=== PATIENT | male | born 1980 | race Caucasian/White ===

== ENCOUNTER 2024-02-15 01:33 | Emergency (ER) | payer OTHER ==
[2024-02-15] MEDS ORDERED: XYLOCAINE 1% HCL 20 ML MDV ONE (01:46)
[2024-02-15 01:53] VITALS: RESP 18; TEMP 98.6
--- NOTE | 2024-02-15 02:08 | ERPHSYRPT ---
- History of Present Illness Time Seen by Provider: 02/15/24 01:39 Source: patient Exam Limitations: no limitations Patient Subjective Stated Complaint: laceration on L upper arm Triage Nursing Assessment: pt ambulatory to bed by self with steady gait, pt alert and oriented x3, pt has 3 cm x 1 cm laceration on L upper arm from a steel roldan, tetanus is not utd. bleeding controlled. Physician History: 43-year-old presented to the ER after he had a laceration left upper outer arm prior to arrival at work while handling some steel. There was bleeding initially but stopped with applying pressure. Minimal dull aching pain. No numbness tingling or weakness distally. Allergies/Adverse Reactions: No Known Drug Allergies Allergy (Verified 02/15/24 01:44) Home Medications: No Reportable Medications [No Reported Medications] 02/15/24 [History] Hx Tetanus, Diphtheria Vaccination/Date Given: No Hx Influenza Vaccination/Date Given: No Hx Pneumococcal Vaccination/Date Given: No Travel Risk - International Travel Have you traveled outside of the country in past 3 weeks: No - Emerging Infectious Disease Are you exhibiting symptoms associated with any current EIDs: No - Review of Systems Constitutional: No Symptoms Ears, Nose, & Throat: No Symptoms Respiratory: No Symptoms Cardiac: No Symptoms Musculoskeletal: Injury Skin: No Symptoms, Skin Lesions Neurological: No Symptoms Endocrine: No Symptoms Hematologic/Lymphatic: No Symptoms - Past Medical History Pertinent Past Medical History: Yes Neurological History: No Pertinent History ENT History: No Pertinent History Cardiac History: No Pertinent History Respiratory History: No Pertinent History Endocrine Medical History: No Pertinent History Musculoskeletal History: No Pertinent History GI Medical History: Hernia History: No Pertinent History Psycho-Social History: No Pertinent History Male Reproductive Disorders: No Pertinent History - Past Surgical History Past Surgical History: Yes Neuro Surgical History: No Pertinent History Cardiac: No Pertinent History Respiratory: No Pertinent History Gastrointestinal: No Pertinent History Genitourinary: No Pertinent History Musculoskeletal: No Pertinent History Male Surgical History: No Pertinent History - Social History Smoking Status: Current every day smoker Exposure to second hand smoke: Yes Drug Use: none - Social Determinants of Health Will the patient participate in the screening: Yes Do you worry about a steady place to live?: No Do you have any problems with any of the following?: No known problems In the past 12 months,have you had to go without utilities?: No Transportation Issues: No Has anyone in your support network made you feel unsafe?: No Have you or anyone in your house had to go without enough: No - Nursing Vital Signs Nursing Vital Signs: Initial Vital Signs Temperature 98.6 F 02/15/24 01:45 Pulse Rate 88 02/15/24 01:45 Respiratory Rate 18 02/15/24 01:45 Blood Pressure 124/85 02/15/24 01:45 O2 Sat by Pulse Oximetry 96 02/15/24 01:45 Pain Scale Pain Intensity 0 - Physical Exam General Appearance: no apparent distress, alert Eye Exam: PERRL/EOMI Ears, Nose, Throat Exam: normal ENT inspection Neck Exam: normal inspection, full range of motion Respiratory Exam: normal breath sounds, lungs clear Cardiovascular Exam: regular rate/rhythm, normal heart sounds Extremity Exam: lacerations (3 cm superficial oblique laceration left upper arm. No active spurting, minimal oozing.), tenderness Neurologic Exam: alert, oriented x 3, cooperative Skin Exam: normal color SpO2 Interpretation: normal SpO2: 96 O2 Delivery: Room Air Procedures - Laceration/Wound Repair Left Arm Time of Procedure: 02:06 Wound Location: Left Wound Length (cm): 3 Wound's Depth, Shape: superficial Wound Explored: clean Irrigated: Yes Hibiclens Prep: Yes Anesthesia: 1% Lidocaine Volume Anesthetic (ccs): 5 Wound Repaired With: sutures Suture Size/Type: 4-0 Number of Sutures: 6 Layer Closure?: No Sterile Dressing Applied?: Yes Ordered Tests: Medication Summary Discontinued Medications Generic Name Dose Route Start Last Admin Trade Name Jerichoq PRN Reason Stop Dose Admin Lidocaine HCl Confirm 02/15/24 01:46 Lidocaine Hcl 1% 20 Ml Mdv 20 Ml Ml Administered 02/15/24 01:47 Dose 1 ml .ROUTE .STU-[employer]-MED ONE - Progress Progress: improved Progress Note: 02/15/24 02:06 43-year-old is evaluated for left arm laceration. Thoroughly cleaned, repaired. Tetanus is updated. Discussed signs symptoms of infection needing return to ER which he seems understanding. Stable for discharge. Counseled pt/family regarding: diagnosis, need for follow-up Medical Desision Making - Risk of complications The pt has a mod risk of morbidity or mortality based on: Need for minor surgical intervention in patient with know risk factors - Departure Departure Disposition: Home Clinical Impression: Arm laceration Condition: Stable Critical Care Time: No Referrals: JASON ANN MD [Primary Care Provider] - Follow up with PCP 1 day Instructions: Laceration Repair With Stitches (DC) Additional Instructions: Follow-up with your primary care physician for reevaluation. Take Tylenol/ibuprofen as needed. Avoid exertional activities. Return to ER for increasing pain swelling, discharge, fever chills etc. Suture removal in 10 - 14days
[2024-02-15] MEDS ORDERED: Adacel Vial IM ONE (02:16)
[2024-02-15] MEDS: Adacel Vial IM ONE (02:21)
[2024-02-15] MEDS: XYLOCAINE 1% HCL 20 ML MDV IJ ONE (02:25)
[2024-02-15 02:30] VITALS: BP 112/84; PULSE 90; O2SAT 97
== END 2024-02-15 02:30 | disposition home or self-care (01) ==
LOC: ED 01:33
DX: S41.112A Laceration without foreign body of left upper arm, initial encounter (principal); W26.8XXA Contact with other sharp object(s), not elsewhere classified, initial encounter; Y92.63 Factory as the place of occurrence of the external cause; Y99.0 Civilian activity done for income or pay; Z72.0 Tobacco use; Z23 Encounter for immunization
CPT/HCPCS: 12002; 90471; 90715; 96372; 99283

== ENCOUNTER 2024-08-05 16:07 | Emergency (ER) | payer OTHER ==
[2024-08-05 16:18] VITALS: BP 138/78; PULSE 90; RESP 18; TEMP 97.4; O2SAT 95
--- NOTE | 2024-08-05 16:57 | ERPHSYRPT ---
- History of Present Illness Time Seen by Provider: 08/05/24 16:40 Source: patient Exam Limitations: no limitations Patient Subjective Stated Complaint: Pt states "I was at work last night and I cut my finger on some metal and when I went home to clean it I noticed it was a little deeper than I originally thought." Triage Nursing Assessment: Pt presented alert and oriented X 3, skin pwd. Pt ambulates with an upright steady gait, able to speak in clear full sentences. Pt has approx 3.5 cm with deeper laceration the last 1.5 cm Physician History: 34-year-old male presents to emergency department for evaluation of a laceration to his right index finger. Patient states the injury was sustained while at work. Patient did not think much of it when it occurred yesterday. However patient observed that it was somewhat deeper than he thought. He became concerned and came to our ED. He otherwise feels well. Tetanus up-to-date. Patient declined pain medication. Patient voices no other complaints or concerns at this time. Portions of this note were created with voice recognition technology. There may be grammatical, spelling, punctuation or sound alike errors Timing/Duration: yesterday Severity: mild Modifying Factors: Improves With: nothing Associated Symptoms: denies symptoms Allergies/Adverse Reactions: No Known Drug Allergies Allergy (Verified 02/15/24 01:44) Hx Tetanus, Diphtheria Vaccination/Date Given: Yes Hx Influenza Vaccination/Date Given: No Hx Pneumococcal Vaccination/Date Given: No Immunizations Up to Date: No Travel Risk - International Travel Have you traveled outside of the country in past 3 weeks: No - Emerging Infectious Disease Are you exhibiting symptoms associated with any current EIDs: No - Review of Systems Constitutional: No Symptoms, No Fever, No Chills Eyes: No Symptoms Ears, Nose, & Throat: No Symptoms Respiratory: No Symptoms, No Cough, No Dyspnea Cardiac: No Symptoms, No Chest Pain, No Edema, No Syncope Abdominal/Gastrointestinal: No Symptoms, No Abdominal Pain, No Nausea, No Vomiting, No Diarrhea Genitourinary Symptoms: No Symptoms, No Dysuria Musculoskeletal: No Symptoms, No Back Pain, No Neck Pain Skin: No Symptoms, No Rash Neurological: No Symptoms, No Dizziness, No Focal Weakness, No Sensory Changes Psychological: No Symptoms Endocrine: No Symptoms Hematologic/Lymphatic: No Symptoms Immunological/Allergic: No Symptoms All Other Systems: Reviewed and Negative - Past Medical History Pertinent Past Medical History: Yes Neurological History: No Pertinent History ENT History: No Pertinent History Cardiac History: No Pertinent History Respiratory History: No Pertinent History Endocrine Medical History: No Pertinent History Musculoskeletal History: No Pertinent History GI Medical History: Hernia History: No Pertinent History Psycho-Social History: No Pertinent History Male Reproductive Disorders: No Pertinent History - Past Surgical History Past Surgical History: Yes Neuro Surgical History: No Pertinent History Cardiac: No Pertinent History Respiratory: No Pertinent History Gastrointestinal: No Pertinent History Genitourinary: No Pertinent History Musculoskeletal: No Pertinent History Male Surgical History: No Pertinent History - Social History Smoking Status: Current every day smoker Exposure to second hand smoke: Yes Drug Use: none - Social Determinants of Health Will the patient participate in the screening: Yes Do you worry about a steady place to live?: No Do you have any problems with any of the following?: No known problems In the past 12 months,have you had to go without utilities?: No Transportation Issues: No Has anyone in your support network made you feel unsafe?: No Have you or anyone in your house had to go without enough: No - Nursing Vital Signs Nursing Vital Signs: Initial Vital Signs Temperature 97.4 F 08/05/24 16:13 Pulse Rate 90 08/05/24 16:13 Respiratory Rate 18 08/05/24 16:13 Blood Pressure 138/78 08/05/24 16:13 O2 Sat by Pulse Oximetry 95 08/05/24 16:13 Pain Scale Pain Intensity 0 - Physical Exam General Appearance: no apparent distress, alert Eye Exam: PERRL/EOMI, eyes nml inspection Ears, Nose, Throat Exam: normal ENT inspection, moist mucous membranes Neck Exam: normal inspection, full range of motion Respiratory Exam: normal breath sounds, lungs clear, airway intact, No respiratory distress Cardiovascular Exam: regular rate/rhythm, normal heart sounds, normal peripheral pulses Gastrointestinal/Abdomen Exam: soft, normal bowel sounds, No tenderness, No mass Back Exam: normal inspection, normal range of motion, No CVA tenderness, No vertebral tenderness Extremity Exam: normal inspection, normal range of motion, pelvis stable, other (3 cm laceration volar aspect right index finger. No tendon exposure. Involved digits neurovascular intact distally compartments are soft cap refill less than 2 seconds. Flexor and extensor tendon function are intact. No active bleeding. However it appears to be a contaminated wound. Wound irri) Neurologic Exam: alert, oriented x 3, cooperative, normal mood/affect, nml cerebellar function, nml station & gait, sensation nml, No motor deficits Skin Exam: normal color, warm, dry, No rash Lymphatic Exam: No adenopathy SpO2 Interpretation: normal SpO2: 95 O2 Delivery: Room Air - Course Nursing assessment & vital signs reviewed: Yes Ordered Tests: Medication Summary Discontinued Medications Generic Name Dose Route Start Last Admin Trade Name Estee PRN Reason Stop Dose Admin Amoxicillin/Clavulanate Potassium 875 mg 08/05/24 16:51 08/05/24 17:02 Amox Tr/Potassium Clavulanate 875 Mg Tablet PO 08/05/24 16:52 875 mg STAT ONE Administration Amoxicillin/Clavulanate Potassium Confirm 08/05/24 17:00 Amox Tr/Potassium Clavulanate 875 Mg Tablet Administered 08/05/24 17:01 Dose 875 mg .ROUTE .STK-MED ONE - Progress Progress: improved Progress Note: 44-year-old male presents to our ED with a 12-hour old superficial 3 cm laceration volar aspect right index finger. Tendon function intact. Steri- Strips applied. No obvious active infection however the wound appears to be contaminated. Patient received a prophylactic dose of Augmentin in our ED. A prescription for the same forwarded to patient's pharmacy. Patient declined pain medication. Patient agrees to follow-up with his primary care doctor within 48 hours for evaluation. Portions of this note were created with voice recognition technology. There may be grammatical, spelling, punctuation or sound alike errors Complexity of problem addressed is moderate acute complicated no critical care time. Complex of data reviewed and analyzed is none. No specialized testing ordered. Diagnosis made based on history and physical exam. Risk of complication and or risk of morbidity/mortality of patient management is low. Vital stable. Time spent to discharge patient is approximately 10 minutes. Plan of care established for shared decision making. No social determinants of health present to impede follow-up. Portions of this note were created with voice recognition technology. There may be grammatical, spelling, punctuation or sound alike errors 08/05/24 16:55 08/05/24 17:05 Counseled pt/family regarding: diagnosis, need for follow-up - Departure Departure Disposition: Home Clinical Impression: Finger laceration Condition: Stable Critical Care Time: No Referrals: DOCTOR,NO FAMILY [Primary Care Provider] - Follow up/PCP as directed Additional Instructions: Discharge/Care Plan JOSIE BELTRAN was seen on 08/05/24 in the Emergency Room. The patient was counseled regarding Diagnosis,Lab results, Imaging studies, need for follow up and when to return to the Emergency Room. Prescriptions given: Discharge Note I have spoken with the patient and/or caregivers. I have explained the patient's condition, diagnosis and treatment plan based on the information available to me at this time. I have answered the patient's and/or caregiver's questions and addressed any concerns. The patient and/or caregivers have as good understanding of the patient's diagnosis, condition and treatment plan as can be expected at this point. The vital signs have been stable. The patient's condition is stable and appropriate for discharge from the emergency department. The patient will pursue further outpatient evaluation with the primary care physician or other designated or consulting physician as outlined in the discharge instructions. The patient and/or caregivers are agreeable to this plan of care and follow-up instructions have been explained in detail. The patient and/or caregivers have received these instruction. The patient/and or caregivers are aware that any significant change in condition or worsening of symptoms sh ould prompt an immediate return to this or the closest emergency department or call 911. Prescriptions: Amox Tr/Potass Clav. 875 mg [Augmentin 875-125 Tablet] 875 mg PO BID 7 Days #14 tablet
[2024-08-05] MEDS ORDERED: Augmentin 875-125 Tablet ONE (17:00)
[2024-08-05] MEDS: Augmentin 875-125 Tablet PO ONE (17:02)
[2024-08-05] MEDS ORDERED: BACIGUENT PACKET ONE (17:05)
== END 2024-08-05 17:16 | disposition home or self-care (01) ==
LOC: ED 16:07
DX: S61.210A Laceration without foreign body of right index finger without damage to nail, initial encounter (principal); W26.8XXA Contact with other sharp object(s), not elsewhere classified, initial encounter; Y99.0 Civilian activity done for income or pay
CPT/HCPCS: 99282; A9270-GY